=== PATIENT | female | born 1990 | race Caucasian/White ===

== ENCOUNTER 2016-04-12 07:27 | Emergency (ER) | payer OTHER ==
[~2016-04-12] VITALS: Wt 65.0 kg
[~2016-04-12 07:27] MED LIST: DOXY100T20 PO; FLUC150T17 PO; METR500T PO; METR70GE15 VAG; NITR-58 PO; ONDA-43 PO; PHEN-538 PO
[2016-04-12 07:56] LABS: URINE BLOOD (Dip) POC 1+ (NEGATIVE)
[2016-04-12] MEDS ORDERED: METR70GE15 VAG (08:07)
--- NOTE | 2016-04-12 09:23 | ERD ---
ER Documentation Chief Complaint Date/Time DATE: 04/12/16 TIME: 09:18 Chief Complaint vaginal itching and discharge for the past few days HPI 25-year-old female otherwise healthy complains of vaginal odor and discharge for the past 1 month. She states that she is active sexually with one male partner, without any protection. She states that this time as she does not have any concern for gonorrhea or chlamydia. I am she does states that it bothers her because there is white vaginal discharge, without any pain and foul odor. She has not had any pelvic pain, vaginal bleeding or fevers or chills. ROS All systems reviewed and are negative except as per history of present illness. Medications Home Meds Active Scripts Metronidazole* (Metrogel* Vaginal) 0.75% -70 Gram Gel.w.appl, 1 APPFUL VAG BID for 7 Days, TUB Prov:ANTHONY GIBSON PA-C 04/12/16 Phenazopyridine Hcl* (Pyridium*) 200 Mg Tab, 200 MG PO TID Y for PAIN, #9 TAB 0 Refills Prov:FRANK LLANES PA-C 06/21/15 Metronidazole* (Metrogel* Vaginal) 0.75% -70 Gram Gel.w.appl, 1 APPFUL VAG BID, #1 TUB 0 Refills Prov:FRANK LLANES PA-C 06/21/15 Nitrofurantoin Monohyd Macrocr* (Macrobid*) 100 Mg Capsr, 100 MG PO BID, #14 CAP 0 Refills Prov:FRANK LLANES PA-C 06/21/15 Ondansetron Hcl* (Zofran*) 4 Mg Tab, 4 MG PO Q4H Y for NAUSEA AND OR VOMITING, # 20 TAB Prov:MARK GRULLON PA-C 11/09/14 Doxycycline Hyclate* (Doxycycline Hyclate*) 100 Mg Tablet.dr, 100 MG PO BID for 10 Days, TAB Prov:NA BURGER NP 11/02/14 Fluconazole* (Diflucan*) 150 Mg Tablet, 150 MG PO ONCE, #1 TAB Prov:NA BURGER NP 11/02/14 Metronidazole* (Flagyl*) 500 Mg Tablet, 500 MG PO TID for 7 Days, TAB Prov:RADHA SPRINGER 10/12/14 Allergies Allergies: Coded Allergies: No Known Allergy (Unverified , 07/04/15) PMhx/Soc History of Surgery: No Anesthesia Reaction: No Hx Neurological Disorder: No Hx Respiratory Disorders: No Hx Cardiac Disorders: No Hx Psychiatric Problems: No Hx Miscellaneous Medical Probl: No Hx Alcohol Use: Yes (socially) Hx Substance Use: Yes (marijuana) Hx Tobacco Use: Yes (socially) Smoking Status: Former smoker Physical Exam Vitals Vital Signs Date Time Temp Pulse Resp B/P Pulse Ox O2 Delivery O2 Flow Rate FiO2 04/12/16 07:30 98.8 75 21 110/53 99 Physical Exam General: Well-developed, well-nourished. The patient appears in no acute distress. HEENT: Head is normocephalic, atraumatic. No scleral icterus. Neck: Supple. Nontender. Lungs: Clear to auscultation. Normal air movement. Heart: Regular rate and rhythm. S1 and S2 are normal. No murmurs, gallops, or rubs. Abdomen: Soft, nontender, nondistended. Bowel sounds are normoactive. : ALT is closed, there is no CMT tenderness, there is white vaginal discharge with foul odor, no yeast seen. Extremities: No clubbing or cyanosis. Normal pulses. Moving extremities x 4. No weakness. Neurologic: Alert and oriented 3. No focal deficits. Skin: Normal turgor. No rash or lesions. Results 24 hrs Laboratory Tests Test 04/12/16 07:58 Bedside Urine Blood 1+ Bedside Urine Glucose (UA) Negative Bedside Urine Ketones (LAB) Negative Bedside Urine Leukocyte Esterase (L Negative Bedside Urine Nitrite (LAB) Negative Bedside Urine Protein (LAB) Negative Bedside Urine pH (LAB) 5.5 Procedures/MDM 25-year-old female comes in with vaginitis, will be treated for bacterial vaginosis. She does not show gross evidence of cervicitis or PID, urine will be sent for gonorrhea and Chlamydia however. No evidence of UTI, or . Departure Diagnosis: Primary Impression: Vaginitis Condition: Good Patient Instructions: Preventing Vaginitis Additional Instructions: Call your primary care doctor TOMORROW for an appointment during the next 1-2 days.See the doctor sooner or return here if your condition worsens before your appointment time. ANTHONY GIBSON PA-C Apr 12, 2016 09:23
== END 2016-04-12 08:23 | disposition home or self-care (01) ==
LOC: FTE 07:27
DX: N76.0 Acute vaginitis (principal); Z87.891 Personal history of nicotine dependence
CPT/HCPCS: 81003; 87591; 99283